=== PATIENT | male | born 1975 | race Caucasian/White ===

== ENCOUNTER 2020-06-21 03:56 | Emergency (ER) | payer OTHER ==
[~2020-06-21] VITALS: Ht 193 cm; Wt 177.3 kg
--- NOTE | 2020-06-21 04:14 | PHYS DOC ---
General Adult EDM: Chief Complaint: BACK PAIN - NO INJURY HPI: HPI: Patient is a 44 year old male who presents with left flank pain that began on Monday. Patient describes severe waxing and waning left flank that radiates to the left groin pain that is sharp and stabbing in nature. Patient says it is worse with palpation and movement. Patient was seen at outlying facility 2 days ago and was told he might have a kidney stone. Patient has persistent vomiting and is unable to keep anything down. Patient arrives EMS quite nauseous. Patient states he has had episodes like this many times in the past Review of Systems: Review of Systems: Constitutional: Denies fever or chills. [] Eyes: Denies change in visual acuity. [] HENT: Denies nasal congestion or sore throat. [] Respiratory: Denies cough or shortness of breath. [] Cardiovascular: Denies chest pain or edema. [] GI: Complains abdominal pain with nausea vomiting : Has some intermittent hematuria Musculoskeletal: Complains of left flank pain Integument: Denies rash. [] Neurologic: Denies headache, focal weakness or sensory changes. [] Endocrine: Denies polyuria or polydipsia. [] Lymphatic: Denies swollen glands. [] Psychiatric: Denies depression or anxiety. [] Heart Score: Risk Factors: Risk Factors: DM, Current or recent (<one month) smoker, HTN, HLP, family history of CAD, obesity. Risk Scores: Score 0 - 3: 2.5% MACE over next 6 weeks - Discharge Home Score 4 - 6: 20.3% MACE over next 6 weeks - Admit for Clinical Observation Score 7 - 10: 72.7% MACE over next 6 weeks - Early Invasive Strategies Current Medications: Current Medications Medications (Trade) Dose Ordered Sig/Uche Start Time Stop Time Status Last Admin Dose Admin Ketorolac Tromethamine (Toradol 15mg Vial) 15 mg 1X ONCE 06/21/20 04:15 06/21/20 04:16 UNV Morphine Sulfate (Morphine Sulfate) 4 mg 1X ONCE 06/21/20 04:15 06/21/20 04:16 UNV Ondansetron HCl (Zofran) 4 mg 1X ONCE 06/21/20 04:15 06/21/20 04:16 UNV Sodium Chloride 1,000 ml @ 1,000 mls/hr 1X ONCE 06/21/20 04:15 06/21/20 05:14 UNV Physical Exam: PE: Constitutional: Well developed, well nourished, mild distress, non-toxic appearance. [] HENT: Normocephalic, atraumatic, bilateral external ears normal, no trismus, nose normal. [] Eyes: PERRLA, EOMI, conjunctiva normal, no discharge. [] Neck: Normal range of motion, no tenderness, supple, no stridor. [] Cardiovascular:Heart rate regular rhythm, peripheral pulse intact cap refill is brisk Lungs & Thorax: Bilateral breath sounds clear, no respiratory distress Abdomen:, soft, mild left side abdominal tenderness without guarding or rebound, no masses, no pulsatile masses. [] Skin: Warm, dry, no erythema, no rash. [] Back: Mild left CVA tenderness Extremities: No tenderness, no cyanosis, no clubbing, ROM intact, no edema. [] Neurologic: Alert and oriented X 3, normal motor function, normal sensory function, no focal deficits noted. [] No saddle anesthesia, dorsiflexion of the great toes intact bilateral lower extremities Psychologic: Affect normal, judgement normal, mood normal. [] Current Patient Data: Labs: Laboratory Tests Test 06/21/20 04:00 White Blood Count 7.9 x10^3/uL Red Blood Count 4.90 x10^6/uL Hemoglobin 16.3 g/dL Hematocrit 46.1 % Mean Corpuscular Volume 94 fL Mean Corpuscular Hemoglobin 33 pg Mean Corpuscular Hemoglobin Concent 35 g/dL Red Cell Distribution Width 13.3 % Platelet Count 197 x10^3/uL Neutrophils (%) (Auto) 63 % Lymphocytes (%) (Auto) 26 % Monocytes (%) (Auto) 8 % Eosinophils (%) (Auto) 3 % Basophils (%) (Auto) 1 % Neutrophils # (Auto) 5.0 x10^3/uL Lymphocytes # (Auto) 2.0 x10^3/uL Monocytes # (Auto) 0.6 x10^3/uL Eosinophils # (Auto) 0.2 x10^3/uL Basophils # (Auto) 0.1 x10^3/uL Sodium Level 143 mmol/L Potassium Level 3.8 mmol/L Chloride Level 105 mmol/L Carbon Dioxide Level 32 mmol/L Anion Gap 6 Blood Urea Nitrogen 12 mg/dL Creatinine 1.1 mg/dL Estimated GFR (Cockcroft-Gault) 72.4 Glucose Level 76 mg/dL Calcium Level 8.9 mg/dL Current Medications Medications (Trade) Dose Ordered Sig/Uche Route PRN Reason Start Time Stop Time Status Last Admin Dose Admin Sodium Chloride 1,000 ml @ 1,000 mls/hr 1X ONCE IV 06/21/20 04:30 06/21/20 05:29 06/21/20 05:02 Ketorolac Tromethamine (Toradol 15mg Vial) 15 mg 1X ONCE IVP 06/21/20 04:45 06/21/20 04:57 DC 06/21/20 05:01 Ondansetron HCl (Zofran) 4 mg 1X ONCE IVP 06/21/20 04:45 06/21/20 04:57 DC 06/21/20 05:00 Morphine Sulfate (Morphine Sulfate) 4 mg 1X ONCE IV 06/21/20 04:45 06/21/20 04:57 DC 06/21/20 05:01 Ketorolac Tromethamine (Toradol 30mg Vial) 30 mg STK-MED ONCE .ROUTE 06/21/20 04:17 06/21/20 04:17 DC Vital Signs: Vital Signs Date Time Temp Pulse Resp B/P (MAP) Pulse Ox O2 Delivery O2 Flow Rate FiO2 06/21/20 05:01 16 96 Room Air 06/21/20 04:00 98.0 71 18 178/91 (120) 97 Room Air 98.0 EKG: EKG: [] Radiology/Procedures: Radiology/Procedures: [][facility] [address] [place] [address] IMAGING REPORT Signed PATIENT: WILBUR FERNANDEZ ACCOUNT: [id number] : 1975 LOCATION: ER AGE: 44 SEX: M EXAM STATUS: PRE ER ORD. PHYSICIAN: ABIMAEL MONROY MD REASON: L FLANK PAIN, R/O STONE PROCEDURE: CT ABDOMEN PELVIS WO CONTRAST CT abdomen and pelvis without contrast PQRS statement: CT scans at this facility use dose reduction including either automated exposure control, iterative reconstructions, and /or weight based radiation dosing via mA and kV modification when appropriate to reduce radiation dose to as low as reasonably achievable. HISTORY: Left flank pain, kidney stone. Abdomen findings: 2 mm nodule right lower lobe image 8 adjacent fissure. Lumbar disc disease with disc osteophytes with spinal canal and neural foraminal stenoses. Mild prominence of the common bile duct likely related to cholecystectomy. Liver, pancreas, spleen, adrenal glands unremarkable. Mild bilateral perinephric edema. No urinary calculi or hydronephrosis. Aortoiliac calcified plaque. Sigmoid diverticulosis. No obstruction or inflammation the GI tract. Appendix is negative. No abdominal fluid. Pelvis findings: No bladder calculi. Prostate, rectum and bones are unremarkable. IMPRESSION: 1. No acute process. Appendix is negative. No urinary calculi or hydronephrosis. 2. 2 mm pulmonary nodule of the right lower lobe. Per Fleischner guidelines if the patient has risk factors for malignancy optional CT follow-up in 12 months with the advised, otherwise no follow-up is necessary. Electronically signed by: Andie Miner MD (06/21/2020 5:09 AM) [facility] DICTATED and SIGNED BY: ANDIE MINER MD DATE: 06/21/20 0509 Course & Med Decision Making: Course & Med Decision Making Pertinent Labs and Imaging studies reviewed. (See chart for details) [] 44-year-old male presents with left flank pain. CT is negative for kidney stone. Blood work is negative. I looked at the patient in [facility] [employer] website and look through multiple states and found that he had multiple prescriptions for opiates in various different states. I discussed this with the patient and my concerns for opiate addiction. On his reassessment he still having pain but I do not feel comfortable giving him more opiates at this time. I will treat him with some anti-inflammatories and Eamon strongly [facility] [place] [facility] with his primary doctor back in [place] with a urologist and a point of care specialist to help determine etiology of his recurrence of back pain. Janet Disclaimer: Janet Disclaimer: This electronic medical record was generated, in whole or in part, using a voice recognition dictation system. Departure Departure Impression: Primary Impression: Left flank pain Disposition: 01 HOME, SELF-CARE Condition: STABLE Referrals: MARIBEL TOMAS MD UROLOGY urology [facility] [address] [place] [address] Patient Instructions: Flank Pain Additional Instructions: EMERGENCY DEPARTMENT GENERAL DISCHARGE INSTRUCTIONS THANK YOU for coming to [facility] Emergency Department (ED) today and trusting us with your care. We trust that you had a positive experience in our Emergency Department. If you wish to speak to the department Management you can contact the supervisor cutting department at . YOUR FOLLOW UP INSTRUCTIONS ARE FOLLOWS: Do you have a private doctor? If you do not have a private doctor, please ask for a resource list of physicians or clinics that may be able to assist you with follow up care. The Emergency Physician has interpreted your x-rays. The X-ray specialist will also review them. If there is a change in the findings you will be notified in 48 hours when at all possible. A lab test or lab culture may have been done, your results will be reviewed and you will be notified if you need a change in treatment. ADDITIONAL INSTRUCTIONS AND INFORMATION Your care today has been supervised by a physician who is specially trained in emergency care. Many problems require more than one evaluation for a complete diagnosis and treatment. We recommend that you schedule your follow up appointment as recommended to ensure complete treatment of your illness or injury. If you are unable to obtain follow up care and continue to have a problem, or if your condition worsens we recommend that you return to the ED. We are not able to safely determine your condition over the phone nor are we able to give sound medical advice over the phone. For these safety reasons, if you call for medical advice we will ask you to come to the ED for further evaluation If you have any questions regarding these discharge instructions please call the ED at . SAFETY INFORMATION In the interest of safety, wellness, and injury prevention; we encourage you to wear your seatbelt, if you smoke; quit smoking, and we encourage your family to use protective helmet for bicycling and other sporting events that present an increased risk for head injury. IF YOUR SYMPTOMS WORSEN OR NEW SYMPTOMS DEVELOP, OR YOU HAVE CONCERNS ABOUT YOUR CONDITION; OR IF YOUR CONDITION WORSENS WHILE YOU ARE WAITING FOR YOUR FOLLOW UP APPOINTMENT; EITHER CONTACT YOUR PRIMARY CARE DOCTOR, THE PHYSICIAN WHOSE NAME AND NUMBER YOU WERE GIVEN, OR RETURN TO THE ED IMMEDIATELY. Scripts Ibuprofen (IBUPROFEN) 600 Mg Tablet 600 MG PO PRN Q6HRS PRN for PAIN, #20 TAB take with food or milk Prov: ABIMAEL MONROY MD 06/21/20 Methocarbamol (ROBAXIN-750) 750 Mg Tablet 1 TAB PO TID for BACK PAIN for 4 Days, #12 TAB 0 Refills Prov: ABIMAEL MONROY MD 06/21/20 ABIMAEL MONROY MD Jun 21, 2020 04:14
[2020-06-21] MEDS ORDERED: KETOROLAC 30 MG/ML VIAL. ONE (04:17)
[2020-06-21 04:18] LABS: BASO # 0.1 x10^3/uL (0.0-0.2); BASO % 1 % (0-3); EOS # 0.2 x10^3/uL (0.0-0.7); EOS % 3 % (0-3); HEMATOCRIT 46.1 % (39.0-53.0); HEMOGLOBIN 16.3 g/dL (13.0-17.5); LYMPH % 26 % (24-48); MEAN CORPUSCULAR HEMOGLOBIN 33 pg (25-35); MEAN CORPUSCULAR HGB CONC 35 g/dL (31-37); MEAN CORPUSCULAR VOLUME 94 fL (79-100); MONO # 0.6 x10^3/uL (0.0-1.1); MONO % 8 % (0-9); NEUT % 63 % (31-73); PLATELET COUNT 197 x10^3/uL (140-400); RED CELL DISTRIBUTION WIDTH 13.3 % (11.5-14.5); WHITE BLOOD COUNT 7.9 x10^3/uL (4.0-11.0)
[2020-06-21 04:24] LABS: CALCIUM 8.9 mg/dL (8.5-10.1); CREATININE 1.1 mg/dL (0.7-1.3); GFR 72.4; POTASSIUM 3.8 mmol/L (3.5-5.1)
[2020-06-21] MEDS ORDERED: IV NORMAL SALINE 1000ML BAG 1,000 ML IV ONE (04:30)
[2020-06-21] MEDS ORDERED: MORPHINE SULFATE 4 MG/ML VIAL. IV ONE (04:45)
[2020-06-21] MEDS ORDERED: KETOROLAC 15 MG/ML VIAL. IVP ONE (04:45)
[2020-06-21] MEDS ORDERED: ONDANSETRON PF 4 MG/2 ML VIAL. IVP ONE (04:45)
--- NOTE | 2020-06-21 05:12 | RAD ---
CT abdomen and pelvis without contrast PQRS statement: CT scans at this facility use dose reduction including either automated exposure control, iterative reconstructions, and /or weight based radiation dosing via mA and kV modification when appropriate to reduce radiation dose to as low as reasonably achievable. HISTORY: Left flank pain, kidney stone. Abdomen findings: 2 mm nodule right lower lobe image 8 adjacent fissure. Lumbar disc disease with disc osteophytes with spinal canal and neural foraminal stenoses. Mild prominence of the common bile duct likely related to cholecystectomy. Liver, pancreas, spleen, adrenal glands unremarkable. Mild bilateral perinephric edema. No urinary calculi or hydronephrosis. Aortoiliac calcified plaque. Sigmoid diverticulosis. No obstruction or inflammation the GI tract. Appendix is negative. No abdominal fluid. Pelvis findings: No bladder calculi. Prostate, rectum and bones are unremarkable. IMPRESSION: 1. No acute process. Appendix is negative. No urinary calculi or hydronephrosis. 2. 2 mm pulmonary nodule of the right lower lobe. Per Fleischner guidelines if the patient has risk factors for malignancy optional CT follow-up in 12 months with the advised, otherwise no follow-up is necessary. Electronically signed by: Abbe Miner MD (06/21/2020 5:09 AM) [facility]
[2020-06-21] MEDS ORDERED: IBUP-1007 PO (05:35)
[2020-06-21] MEDS ORDERED: METH-38 PO (05:35)
[2020-06-21 06:00] VITALS: BP 139/79
== END 2020-06-21 06:06 | disposition home or self-care (01) ==
LOC: ER 03:56
DX: R10.32 Left lower quadrant pain (principal); R11.2 Nausea with vomiting, unspecified; R31.9 Hematuria, unspecified
CPT/HCPCS: 36415; 74176; 80048; 85025; 96361; 96374; 96375; 99284; J1885; J2270; J2405; J7030